=== PATIENT | female | born 1975 | race Hispanic/Latino ===

== ENCOUNTER 2018-03-29 12:08 | Emergency (ER) | payer BC ==
[~2018-03-29 12:08] MED LIST: ISOVUE-370 76%-LOCM 1 ML ONE; Iopamidol 370 76% 50 ML VIAL FS ONE
[2018-03-29 12:35] LABS: #Lymphocytes 1.5 thou/uL (1.20-3.40); #Monocytes 1.1 thou/uL (0.11-0.59); #Neutrophils 11.2 thou/uL (1.40-6.50); %Basophils 0.3 % (0.0-1.0); %Eosinophils 0.3 % (0.0-10.0); %Lymphocytes 10.6 % (21.0-51.0); %Monocytes 8.1 % (0.0-10.0); %Neutrophils 80.7 % (42.0-75.0); Hemoglobin 12.6 g/dL (12.0-16.0); Mean Corpuscular Hemoglobin 27.5 pg (27.0-31.0); Mean Corpuscular Volume 85.8 fL (78.0-98.0); Mean Platelet Volume 6.3 fL (7.4-10.4); Platelet Count 419 thou/uL (130-400); RBC Distribution Width 12.5 % (11.5-14.5); Red Blood Cell (RBC) Count 4.57 mill/uL (4.20-5.40); White Blood Cell (WBC) Count 13.9 thou/uL (4.8-10.8)
[2018-03-29 12:41] LABS: Bilirubin Negative (Negative); Blood, Urine Large (Negative); Clarity CLOUDY (Clear); Glucose, Urine (Dipstick) Negative (Negative); Leukocyte Moderate (Negative); Nitrite Positive (Negative); Protein, Urine (Dipstick) 30 mg/dL (Neg-Trace); Specific Gravity, Urine 1.019 (1.002-1.036); Urobilinogen 0.2 mg/dL (0.2-1.0)
[2018-03-29 12:43] LABS: Pregnancy Test - Urine (BHCG) Negative (Negative); Pregu Control Background? CLEAR/WHITE (CLR/WHITE); Pregu Control Bar Appear? YES (CONTROL BAR); Specific Gravity 1.019 (1.002-1.036)
[2018-03-29 12:52] LABS: Bacteria/HPF 4+ HPF (None Seen); Hyaline Casts/LPF 4-6 HYALINE CAST LPF (0-3 Hyaline); Pathc Cast-AUWi Flag 0.72 (0-2.49); RBC/HPF GREATER THAN 50-TNTC HPF (0-3)
[2018-03-29 12:58] LABS: ALT (SGPT) 11 U/L (8-55); AST (SGOT) 13 U/L (5-34); Albumin 3.9 g/dL (3.5-5.0); Alkaline Phosphatase 89 U/L (40-150); Anion Gap 13 mmol/L (10-20); BUN (Urea Nitrogen) 10 mg/dL (7.0-18.7); Bilirubin, Total 0.6 mg/dL (0.2-1.2); Calc. Creatinine Clearance 0 mL/min (70-130); Calcium 9.6 mg/dL (7.8-10.44); Carbon Dioxide 26 mmol/L (22-29); Chloride 102 mmol/L (98-107); Estimated GFR-MDRD 78; Globulin 3.7 g/dL (2.4-3.5); Glucose 121 mg/dL (70-105); Potassium 4.1 mmol/L (3.5-5.1); Protein, Total 7.6 g/dL (6.0-8.3); Sodium 137 mmol/L (136-145)
[2018-03-29] MEDS ORDERED: Acetaminophen 500 MG TAB ONE (14:01)
[2018-03-29] MEDS ORDERED: cefTRIAXone\\ROCEPHIN 1 GM VIAL ONE (14:01)
--- NOTE | 2018-03-29 15:25 | CT ---
CT ABDOMEN AND PELVIS WITH CONTRAST: HISTORY: Right lower quadrant pain. COMPARISON: None. FINDINGS: Lung bases are clear. No pericardial effusion. Prior gastric surgery. Small hypodensity interpolar left kidney measuring further attenuation suggesting a cyst. The appendix is visualized and is normal. There are multiple fibroids of the uterus, some of which a re subserosal and pedunculated. No free intraperitoneal gas or fluid. No dilated loops of large or small bowel. Aortoiliac contour is nonaneurysmal. Adrenal glands are unremarkable. Moderate degenerative disk space disease at L5-S1. There is very mild asymmetric stranding around the right kidney relative to the left. IMPRESSION: 1. Very mild asymmetric right perinephric stranding relative to the left can be seen with pyelonephr itis. 2. Normal appendix. 3. Multiple uterine fibroids, some of which are subsclerosal and pedunculated. POS: TPC
== END 2018-03-29 15:50 | disposition home or self-care (01) ==
LOC: ERS 12:08
DX: N10 Acute pyelonephritis (principal); Z79.899 Other long term (current) drug therapy
CPT/HCPCS: 36415; 74177; 80053; 81003; 81015; 81025; 83605; 85025; 86140; 86850; 86900; 86901; 87040; 87077; 87086; 87186; 96365; J0696; Q9966; Q9967

== ENCOUNTER 2018-07-19 05:20 | Outpatient (CLI) | payer BC ==
[2018-07-19 12:48] VITALS: BMI 37.5
[2018-07-19 13:33] LABS: Hemoglobin 11.9 g/dL (12.0-16.0); Mean Corpuscular HGB CONC 32.2 g/dL (32.0-36.0); Mean Corpuscular Hemoglobin 26.4 pg (27.0-31.0); Mean Corpuscular Volume 82.1 fL (78.0-98.0); Mean Platelet Volume 6.7 fL (7.4-10.4); Platelet Count 406 thou/uL (130-400); RBC Distribution Width 13.3 % (11.5-14.5); Red Blood Cell (RBC) Count 4.49 mill/uL (4.20-5.40); White Blood Cell (WBC) Count 9.4 thou/uL (4.8-10.8)
[2018-07-19 13:59] LABS: Anion Gap 13 mmol/L (10-20); BUN (Urea Nitrogen) 16 mg/dL (7.0-18.7); Calc. Creatinine Clearance 136 mL/min (70-130); Calcium 9.3 mg/dL (7.8-10.44); Carbon Dioxide 25 mmol/L (22-29); Chloride 105 mmol/L (98-107); Estimated GFR-MDRD 77; Glucose 93 mg/dL (70-105); Potassium 4.4 mmol/L (3.5-5.1); Sodium 139 mmol/L (136-145)
[2018-07-19 14:09] LABS: BHCG - Serum Negative (NEGATIVE); Pregs Control Background? CLEAR/WHITE (CLR/WHITE); Pregs Control Bar Appear? YES (CONTROL BAR)
== END 2018-07-19 05:21 | disposition home or self-care (01) ==
LOC: LABBT 05:20
PROVIDERS: ATTEND Obstetrics & Gynecology
DX: Z01.812 Encounter for preprocedural laboratory examination (principal); D21.9 Benign neoplasm of connective and other soft tissue, unspecified
CPT/HCPCS: 80048; 84703; 85027

== ENCOUNTER 2018-07-20 08:14 | Day surgery (SDC) | payer BC ==
[2018-07-20] MEDS ORDERED: CeleCOXIB 100 MG CAP ONE (09:08)
[2018-07-20] MEDS ORDERED: Gabapentin 300 MG CAP ONE (09:08)
[2018-07-20] MEDS ORDERED: Famotidine/PF 20 mg/2ml Vial ONE (09:09)
[2018-07-20] MEDS ORDERED: Midazolam HCl 2 mg/2 ml Vial ONE ×2 (09:44→09:54)
[2018-07-20] MEDS ORDERED: Fentanyl 100 MCG/2 ML VIAL ONE ×3 (09:54→14:10)
[2018-07-20] MEDS ORDERED: Bupivacaine HCl 0.5%/Epinephrine 1:200,000/PF 30 ml Vial ONE (09:57)
[2018-07-20] MEDS ORDERED: HYDROcodone/Acetaminophen 5/325 mg Tablet PO PRN ×2 (10:36)
[2018-07-20] MEDS ORDERED: Ondansetron PF 4 MG/2 ML Vial IVP PRN (10:36)
[2018-07-20] MEDS ORDERED: Promethazine HCl 25 MG/ML VIAL IM PRN ×2 (10:36→12:48)
[2018-07-20] MEDS ORDERED: Zolpidem Tartrate 5 MG TAB PO PRN (10:36)
[2018-07-20] MEDS ORDERED: diphenhydrAMINE 25 MG CAP PO PRN (10:36)
[2018-07-20] MEDS ORDERED: Bisacodyl 10 MG SUPP PR PRN (10:36)
[2018-07-20] MEDS ORDERED: Ropivacaine 0.2% 550 ML 750 ML NERVE BLCK SCH (10:45)
[2018-07-20] MEDS ORDERED: Bupivacaine/Epinephrine 0.25% 30 ML VIAL ONE (11:32)
[2018-07-20] MEDS ORDERED: Bacitracin Zinc Ointment 30 gm TUBE ONE (11:57)
[2018-07-20] MEDS ORDERED: Ondansetron HCl/PF 4 MG/2 ML Vial IVP PRN (12:48)
[2018-07-20] MEDS ORDERED: Promethazine HCl 25 MG/ML VIAL SLOW IVP PRN (12:48)
[2018-07-20] MEDS ORDERED: Simethicone Chewable 80 MG TAB PO PRN (13:00)
[2018-07-20] MEDS: Morphine 4 MG/ML VIAL SLOW IVP PRN (16:00)
[2018-07-20] MEDS: Ketorolac Tromethamine 30 MG/ML VIAL IVP SCH ×2 (16:02→18:11)
[2018-07-20] MEDS: Sodium Chloride 0.9% 1,000 ML IV SCH ×2 (16:02→18:12)
--- NOTE | 2018-07-20 17:43 | OP ---
DATE OF PROCEDURE: 07/20/2018 PREOPERATIVE DIAGNOSES: Fibroid uterus and pelvic pain. POSTOPERATIVE DIAGNOSES: Fibroid uterus and pelvic pain. PROCEDURES PERFORMED: Robotic-assist total laparoscopic hysterectomy with bilateral salpingectomy with extracorporeal bag contained morcellation and ON-Q pump placement. BED SETTER: Deena Barton PA-C COMPLICATIONS: None. EBL: 75 mL. URINE OUTPUT: 200 mL during the case. ANESTHESIA: GETA. OPERATIVE FINDINGS: 1. Large fibroid uterus with multiple smaller pedunculated fibroids. 2. Normal appearing tubes and ovaries bilaterally. DESCRIPTION OF PROCEDURE: The patient was taken back to the OR with IV fluids running. When she was in the OR, she was placed in dorsal supine position and general anesthesia was obtained. Once the patient was asleep, she was placed in low dorsal lithotomy position. The abdomen and vagina were prepped and draped in normal fashion for gynecologic laparoscopy. Surgeons were gowned and gloved. A Skinner catheter was placed into the bladder and the bladder drained approximately 50 mL of urine. The Skinner tip was attached to a Zoran syringe for bladder manipulation if needed during the case. An operative speculum was placed in the vagina and the cervix was easily visualized and grasped with a single-tooth tenaculum. The uterus sounded to approximately 7 to 8 cm. The cervix was serially dilated to allow for passage of Fabi-Daryl manipulator tip. The Fabi-Daryl manipulator was assembled with 3.5 cm cup and an 8 cm tip and placed into the uterus and vagina in normal fashion for uterine manipulation during the case. The surgeon's gloves were changed and attention was turned to the laparoscopic portion of the case. Approximately 2 cm above the umbilicus, local anesthesia was placed underneath the skin. A 12 mm skin incision was made with a scalpel. A Veress needle was placed through the skin incision and the abdomen was insufflated without difficulty. A 12 mm trocar was placed through this incision under direct visualization with the above findings noted. The uterus was noted to be large and irregularly-shaped and decision was made at this time that the uterus would be removed with the EXCITE procedure and technique. The right and left lower quadrant 8 mm robotic trocars were placed in similar fashion under direct visualization as well as right upper quadrant 11 mm port. After the ports were in place, the supraumbilical incision was extended from the skin to the fascia approximately 2 cm in length slightly extending the original trocar incision. Through this incision, Lukas mini retractor was placed into the abdominal cavity for retraction and the GelPOINT cap was placed over the Lukas mini retractor with the [address] to the center. The abdomen was reinsufflated. The patient was then placed in Trendelenburg position and the robotic arms were docked at the patient's bedside. The monopolar scissors and bipolar cautery were placed under direct visualization. The procedure then began on the patient's left side. The left fallopian tube was grasped and elevated away from the pelvic sidewall. It was transected using a combination of bipolar and monopolar cautery, and removed from the operative field and sent for pathologic review. The left uterine ovarian ligament was cauterized and transected allowing the left ovary to fall away at the pelvic sidewall. The round ligament on the patient's left side was identified, cauterized, and transected. It was then further divided into anterior and posterior leaf. The patient's ureter on the left side was noted to be vermiculating and well away from the planned dissection sites. The anterior and posterior leaves of the round and broad ligament were dissected away from the uterus. The uterine artery was skeletonized. The anterior leaf of the broad ligament was taken down toward the cervix and a bladder flap was created dissecting the cervical vaginal fascia off the cervix and planned colpotomy site. The uterine artery on the patient's left side was cauterized and transected. Attention was then turned to the right side. In similar fashion, the right fallopian tube was grasped and elevated. It was dissected and then transected using bipolar and monopolar cautery. The fallopian tube was removed from the operative field. The utero-ovarian ligament on the patient's right side was cauterized and transected allowing the right ovary to fall away to the pelvic sidewall. The round ligament on the patient's right side was identified, grasped, and cauterized. It was then divided into anterior and posterior leaves and dissected down toward the level of the uterine artery. The anterior leaf was taken down towards the contralateral bladder flap dissection and the bladder was then gently dissected away from the cervix and planned colpotomy site. The uterine artery on the patient's right side was skeletonized, then cauterized and transected. Attention was then turned to the colpotomy. The colpotomy was completed with monopolar cautery circumferentially and under good visualization. After the colpotomy was completed, the uterus was released from the uterine manipulator. The vaginal cuff was inspected and any small areas of bleeding were controlled with bipolar cautery. A Stratafix suture was placed into the operating field under direct visualization. The right corner of the vaginal cuff was identified and a stitch was placed. Once the second stitch was placed, bleeding was noted at the right corner and it was suspected that the suture was placed through a small accessory vessel. The suture was removed. The bleeding was identified and bipolar cautery was used for hemostasis. After hemostasis was achieved. The remainder of the vaginal cuff was closed with a series of interrupted sutures. It was closed in 2 layers. After the vaginal cuff was closed, the needle was removed from the operative field. The vaginal cuff was copiously irrigated as well as the pelvic sidewall dissections with no areas of bleeding noted. The pressure was dropped to 8 mmHg with no areas of bleeding noted under observation. The laparoscopic bag, which had previously been placed at the start of the case was brought down into the pelvis and opened up. The uterine specimen was placed into the bag. The bag was then brought up through the GelPOINT. Next, an ON-Q catheter tip was placed under direct visualization in the midline below the umbilicus. A catheter tip was threaded through the introducer and the catheter tip was primed with good flow noted after the ON-Q pump was placed. The trocars were removed. The GelPOINT cap was released and the bag specimen was brought up to the umbilicus. The mini Lukas retractor was removed, but then replaced inside laparoscopic retrieval bag. The cervix was palpated and grasped through the umbilical incision with the Aydee thyroid clamp and then using the C coring technique, the uterine specimen was morcellated from the bag. After the specimen was completely morcellated, the laparoscopic bag and Lukas mini retractor were removed. The sponge and instrument counts were correct. The fascia was then closed on the supraumbilical incision with Vicryl suture. All four skin incisions were closed with Monocryl suture and dressed with Dermabond dressing. The vagina was inspected with no bleeding noted vaginally from the vaginal cuff or from the vagina. The patient was then cleaned, dried, extubated, and taken to recovery room in good condition. Job ID: [id number]
[2018-07-20] MEDS: Ibuprofen 800 MG TAB PO SCH (21:00)
[2018-07-21] MEDS: Ketorolac Tromethamine 30 MG/ML VIAL IVP SCH ×3 (00:23→12:36)
[2018-07-21] MEDS: Morphine 4 MG/ML VIAL SLOW IVP PRN (03:53)
[2018-07-21] MEDS: Sodium Chloride 0.9% 1,000 ML IV SCH ×2 (04:02→12:35)
[2018-07-21 06:23] LABS: Hemoglobin 9.7 g/dL (12.0-16.0); Mean Corpuscular HGB CONC 32.5 g/dL (32.0-36.0); Mean Corpuscular Hemoglobin 26.9 pg (27.0-31.0); Mean Corpuscular Volume 82.8 fL (78.0-98.0); Mean Platelet Volume 6.7 fL (7.4-10.4); Platelet Count 328 thou/uL (130-400); RBC Distribution Width 13.2 % (11.5-14.5); Red Blood Cell (RBC) Count 3.62 mill/uL (4.20-5.40)
[2018-07-21 07:23] VITALS: BMI 37.5
[2018-07-21] MEDS ORDERED: Multivit, Therapeutic 1 TAB PO SCH (09:00)
[2018-07-21] MEDS: Ibuprofen 800 MG TAB PO SCH (09:37)
[2018-07-21 11:53] VITALS: BP 118/68; TEMP 97.7
--- NOTE | 2018-07-21 16:31 | PDOC.EVN ---
Event Note - Event Note Event Note: PT seen and evaluated on post op day 1. Pt is s/p RATLH/BS using excite. Pt' s pain is well controlled at this time with current medication and OnQ pump. PT is eating well and passing gas. Her medina was discontinue this am and she is about to get up and try to void. Vaginal bleeding is minimal. No leg pain or swelling. PT VSS. Her H&H is stable. PT is resting comfortable in bed. No distress or noted discomfort. Pt has normal respiratory effort. Abdomen is soft and non distended. Incision healing appropriately. On Q pump in place. No leg pain or swelling. Normal mentation. PT s/p RATLH/BS using excite. Patient is doing well and pain controlled. Instructions on OnQ pump discussed with patient. Plan to discharge when she is up and voiding normally. PT has 2 week f/u scheduled and rx for pain medication has been sent to pharmacy.
== END 2018-07-21 14:42 | disposition home or self-care (01) ==
LOC: SDC 08:14 → 3SE 10:35 → EDSTATUS 12:00 → SDC 07-21 14:42
PROVIDERS: ATTEND Obstetrics & Gynecology
PROC: 0UT74ZZ Resection of Bilateral Fallopian Tubes, Percutaneous Endoscopic Approach (ICD-10-PCS; principal; 2018-07-21)
PROC: 0UT94ZZ Resection of Uterus, Percutaneous Endoscopic Approach (ICD-10-PCS; principal; 2018-07-21)
DX: D25.2 Subserosal leiomyoma of uterus (principal); N88.8 Other specified noninflammatory disorders of cervix uteri; G89.18 Other acute postprocedural pain; E66.9 Obesity, unspecified; Z68.37 Body mass index [BMI] 37.0-37.9, adult; Z98.84 Bariatric surgery status; Z79.899 Other long term (current) drug therapy
CPT/HCPCS: 36415; 85027; 86850; 86900; 86901; 88307; 88342; A4306; J0670; J0690; J1885; J2250; J2270; J2405; J2795; J3010; S0028

== ENCOUNTER 2019-09-08 08:17 | Outpatient (CLI) | payer BC ==
--- NOTE | 2019-09-08 08:41 | ULT ---
ULTRASOUND RETROPERITONEUM COMPLETE: (RENAL) DATE: 09/08/2019 HISTORY: 44-year-old female with flank pain. Rule out hydronephrosis. FINDINGS: The right kidney measures 12.5 x 5.5 x 5.5 cm. The left kidney measures 11 x 5.5 x 6 cm. Both kidneys have normal parenchymal echogenicity. There is no hydronephrosis. No moderate sized or large renal cystic or solid renal lesion is identified. Cursory images of the full urinary bladder demonstrate no gross abnormality, with volume of 185 mL. Postvoid volume is 50 mL. IMPRESSION: 1) no hydronephrosis. 2) incomplete micturition
== END 2019-09-08 08:18 | disposition home or self-care (01) ==
LOC: BICULT 08:17
PROVIDERS: ATTEND Nurse Practitioner Family
DX: N39.8 Other specified disorders of urinary system (principal); M54.5 Low back pain; R39.14 Feeling of incomplete bladder emptying
CPT/HCPCS: 76770

== ENCOUNTER 2022-05-29 07:41 | Outpatient (CLI) | payer BC | END 2022-05-29 07:42 | disposition home or self-care (01) | LOC: RAD-FRANK 07:41 | PROVIDERS: ATTEND Nurse Practitioner Family | DX: M25.521 Pain in right elbow (principal) ==